=== PATIENT | female | born 1990 | race Hispanic/Latino ===

== ENCOUNTER 2019-08-17 13:08 | Emergency (ER) | payer MEDICAID, OTHER ==
[2019-08-17] MEDS ORDERED: SODIUM CHLORIDE 0.9% 1000ML 1,000 ML IV ONE (13:09)
[2019-08-17] MEDS ORDERED: ONDANSETRON HCL 4 MG/2 ML VIAL ONE (13:31)
[2019-08-17 13:53] LABS: BASOPHILS % (AUTO) 0.2 % (0.0-5.0); HEMATOCRIT 41.4 % (36-48); LYMPHOCYTES % (AUTO) 10.1 % (21.0-51.0); MEAN CORPUSCULAR HEMOGLOBIN 28.8 pg (27.0-33.0); MEAN CORPUSCULAR HGB CONC 33.6 g/dL (32.0-36.0); MEAN CORPUSCULAR VOLUME 85.7 fL (79-99); MONOCYTES % (AUTO) 2.8 % (3.0-13.0); NEUTROPHILS % (AUTO) 86.5 % (40.0-77.0); PLATELET COUNT (AUTO) 395 K/uL (130-400); RED BLOOD CELL COUNT(AUTO) 4.83 MIL/uL (4.00-5.50); RED CELL DISTRIBUTION WIDTH 14.6 % (11.0-15.5); WHITE BLOOD COUNT (AUTO) 17.3 K/uL (4.8-10.8)
[2019-08-17 14:06] LABS: APPEARANCE,URINE Turbid (CLEAR); BILIRUBIN,URINE Small (NEGATIVE); COLOR,URINE Dark Yellow (YELLOW); CREATININE 0.9 mg/dL (0.5-1.5); GLUCOSE, URINE (UA) TRACE mg/dL (NEGATIVE); KETONES,URINE >=160 mg/dL (NEGATIVE); LEUKOCYTE ESTERASE ,URINE Trace (NEGATIVE); NITRATE,URINE Negative (NEGATIVE); OCCULT BLOOD,URINE Small (NEGATIVE); POTASSIUM 3.3 mmol/L (3.5-5.1); PROTEIN,URINE 300 mg/dL (NEGATIVE)
[2019-08-17 14:22] LABS: BACTERIA,URINE Few /HPF (None Seen); MUCUS,URINE Many LPF (None Seen); RBC,URINE 0-1 /HPF (0-1); SQUAMOUS EPITHELIAL CELL,UR Moderate /HPF (0-2)
[2019-08-17 14:31] LABS: ALBUMIN 4.6 g/dL (3.5-5.0); BILIRUBIN,TOTAL 0.4 mg/dL (0.2-1.0)
== END 2019-08-17 15:59 | disposition home or self-care (01) ==
LOC: EDH 13:08
DX: O21.9 Vomiting of pregnancy, unspecified (principal); O26.891 Other specified pregnancy related conditions, first trimester; R10.31 Right lower quadrant pain; R10.32 Left lower quadrant pain; Z3A.01 Less than 8 weeks gestation of pregnancy
CPT/HCPCS: 36415; 76801; 80053; 81001; 83690; 84702; 85025; 96374; 99284; J2405; J7030

== ENCOUNTER 2020-03-21 10:32 | Observation (INO) | payer MEDICAID ==
[~2020-03-21] VITALS: Ht 162.6 cm; Wt 106.6 kg
[2020-03-21] MEDS ORDERED: CALDOLOR 800MG+NS 250ML 250 ML IV PRN (11:00)
[2020-03-21] MEDS ORDERED: LACTATED RINGERS 1000ML 1,000 ML IV PRN (11:00)
[2020-03-21] MEDS ORDERED: OXYTOCIN-LR 20 UNITS/1000 ML 1,000 ML IV SCH (11:00)
[2020-03-21] MEDS ORDERED: CEFAZOLIN SODIUM 1 GM VIAL IVP PRN (11:00)
[2020-03-21 11:22] LABS: BASOPHILS % (AUTO) 0.4 % (0.0-5.0); EOSINOPHILS % (AUTO) 1.9 % (0.0-8.0); HEMATOCRIT 32.4 % (36-48); LYMPHOCYTES % (AUTO) 21.9 % (21.0-51.0); MEAN CORPUSCULAR HEMOGLOBIN 23.1 pg (27.0-33.0); MEAN CORPUSCULAR HGB CONC 31.2 g/dL (32.0-36.0); MEAN CORPUSCULAR VOLUME 74.1 fL (79-99); MONOCYTES % (AUTO) 7.3 % (3.0-13.0); NEUTROPHILS % (AUTO) 67.5 % (40.0-77.0); NUCLEATED RED BLOOD CELLS 0.3 % (0.0-0.19); PLATELET COUNT (AUTO) 299 K/uL (130-400); RED BLOOD CELL COUNT(AUTO) 4.37 MIL/uL (4.00-5.50); RED CELL DISTRIBUTION WIDTH 17.9 % (11.0-15.5); WHITE BLOOD COUNT (AUTO) 12.3 K/uL (4.8-10.8)
[2020-03-21 11:29] LABS: APPEARANCE,URINE Clear (CLEAR); BILIRUBIN,URINE Negative (NEGATIVE); COLOR,URINE Yellow (YELLOW); GLUCOSE, URINE (UA) Negative (NEGATIVE); KETONES,URINE Negative (NEGATIVE); LEUKOCYTE ESTERASE ,URINE Negative (NEGATIVE); NITRATE,URINE Negative (NEGATIVE); OCCULT BLOOD,URINE Negative (NEGATIVE); PROTEIN,URINE POS 1+ mg/dL (NEGATIVE); UROBILINOGEN,URINE 0.2 mg/dL (0.2-1.0)
[2020-03-21 11:31] LABS: CREATININE 0.6 mg/dL (0.5-1.5); POTASSIUM 3.7 mmol/L (3.5-5.1)
[2020-03-21 11:36] LABS: ALBUMIN 2.3 g/dL (3.5-5.0); BILIRUBIN,TOTAL 0.2 mg/dL (0.2-1.0); TOTAL PROTEIN, SERUM 6.9 g/dL (6.0-8.3); URIC ACID 4.5 mg/dL (2.6-7.2)
[2020-03-21 11:57] LABS: BACTERIA,URINE Rare /HPF (None Seen); RBC,URINE 0-1 /HPF (0-1); WBC,URINE None Seen /HPF (0-1)
[2020-03-21 11:58] LABS: SQUAMOUS EPITHELIAL CELL,UR 0-2 /HPF (0-2)
[2020-03-21 12:02] LABS: INR 0.87 (0.85-1.15); PARTIAL THROMBOPLASTIN TIME 25.7 SEC (26.3-35.5); PROTHROMBIN TIME 9.4 SEC (9.6-11.6)
[2020-03-22 08:18] LABS: HEPATITIS Bs ANTIGEN SCREEN P Negative (Negative)
== END 2020-03-21 13:48 | disposition home or self-care (01) ==
LOC: OBSVTOIN 10:32 → INTOOBSV 10:32 → LDH 10:32
PROVIDERS: ADMIT Obstetrics & Gynecology; ATTEND Obstetrics & Gynecology
DX: O26.893 Other specified pregnancy related conditions, third trimester (principal); R03.0 Elevated blood-pressure reading, without diagnosis of hypertension; O34.219 Maternal care for unspecified type scar from previous cesarean delivery; Z3A.36 36 weeks gestation of pregnancy
CPT/HCPCS: 36415; 59025; 80053; 81001; 84550; 85025; 85384; 85610; 85730; 86592; 86850; 86900; 86901; 87340; 96360; 96361; G0378 ×3

== ENCOUNTER 2022-02-02 12:05 | Emergency (ER) | payer MEDICAID ==
[~2022-02-02] VITALS: Ht 162.6 cm; Wt 81.6 kg
[2022-02-02] MEDS ORDERED: 0.9%NACL 1000ML 1,000 ML IV ONE (12:30)
[2022-02-02] MEDS ORDERED: FAMOTIDINE 20MG VIAL IV ONE (12:30)
[2022-02-02] MEDS ORDERED: DICYCLOMINE HCL 10 MG/5 ML ML PO ONE (12:30)
[2022-02-02] MEDS ORDERED: MAG/ALUM/SIMETH 30 ML UDCUP PO ONE (12:30)
[2022-02-02] MEDS ORDERED: PROMETHAZINE HCL 25 MG/ML 1ML AMPULE IM ONE (12:30)
[2022-02-02] MEDS ORDERED: LIDOCAINE HCL 2% VISCOUS 15 ML UDCUP PO ONE (12:30)
[2022-02-02 12:36] LABS: BASOPHILS % (AUTO) 0.4 % (0.0-5.0); HEMATOCRIT 38.3 % (36-48); LYMPHOCYTES % (AUTO) 12.7 % (21.0-51.0); MEAN CORPUSCULAR HEMOGLOBIN 25.7 pg (27.0-33.0); MEAN CORPUSCULAR HGB CONC 32.6 g/dL (32.0-36.0); MEAN CORPUSCULAR VOLUME 78.8 fL (79-99); NEUTROPHILS % (AUTO) 79.4 % (40.0-77.0); PLATELET COUNT (AUTO) 344 K/uL (130-400); RED BLOOD CELL COUNT(AUTO) 4.86 MIL/uL (4.00-5.50); RED CELL DISTRIBUTION WIDTH 18.2 % (11.0-15.5); WHITE BLOOD COUNT (AUTO) 19.7 K/uL (4.8-10.8)
[2022-02-02 12:40] LABS: APPEARANCE,URINE CLOUDY (CLEAR); BILIRUBIN,URINE NEGATIVE (NEGATIVE); COLOR,URINE LIGHT-ORANGE (YELLOW); GLUCOSE, URINE (UA) NEGATIVE (NEGATIVE); KETONES,URINE 10 mg/dL (NEGATIVE); LEUKOCYTE ESTERASE ,URINE 25 Leu/uL (NEGATIVE); NITRATE,URINE NEGATIVE (NEGATIVE); OCCULT BLOOD,URINE LARGE (NEGATIVE); PROTEIN,URINE 100 mg/dL (NEGATIVE)
[2022-02-02 12:43] LABS: HCG,QUALITATIVE URINE NEGATIVE (NEGATIVE)
[2022-02-02 12:50] LABS: BACTERIA,URINE RARE /HPF (None Seen); MUCUS,URINE MANY LPF (None Seen); SQUAMOUS EPITHELIAL CELL,UR MANY /HPF (0-2)
[2022-02-02 12:57] LABS: ALBUMIN 4.1 g/dL (3.5-5.0); CREATININE 0.8 mg/dL (0.5-1.5); POTASSIUM 3.1 mmol/L (3.5-5.1); TOTAL PROTEIN, SERUM 8.4 g/dL (6.0-8.3)
[2022-02-02] MEDS ORDERED: CEFTRIAXONE 1G VIAL IVP ONE (13:30)
[2022-02-02] MEDS ORDERED: POTASSIUM BICARB/CIT AC 25 MEQ TABLET.EFF PO ONE (13:30)
[2022-02-02] MEDS ORDERED: CEPH500B PO (14:13)
[2022-02-02] MEDS ORDERED: ONDA4TAB10 PO (14:13)
[2022-02-02 14:31] VITALS: BP 119/67
== END 2022-02-02 14:35 | disposition home or self-care (01) ==
LOC: EDH 12:05
DX: N39.0 Urinary tract infection, site not specified (principal); E87.1 Hypo-osmolality and hyponatremia; E87.6 Hypokalemia; R11.2 Nausea with vomiting, unspecified
CPT/HCPCS: 99284; 96374; 96361; 96375; 80053; 83690; 85025; 87088; 87804 ×2; 81001; 81025; 36415; 96372; J7030; J2550; J0696; S0028; J3490

== ENCOUNTER 2023-07-12 19:24 | Emergency (ER) | payer MEDICAID, OTHER ==
[~2023-07-12] VITALS: Ht 162.6 cm; Wt 86.2 kg
[~2023-07-12 19:24] MED LIST: CEPH500B PO; ONDA4TAB10 PO
[2023-07-12 20:01] LABS: BASOPHILS # (AUTO) 0.07 K/uL (0.00-0.20); BASOPHILS % (AUTO) 0.5 % (0.0-5.0); EOSINOPHILS # (AUTO) 0.11 K/uL (0.00-0.70); EOSINOPHILS % (AUTO) 0.8 % (0.0-8.0); HEMATOCRIT 35.5 % (36-48); IMMATURE GRANULOCYTE ABSOLUTE 0.04 K/uL (0-1); LYMPHOCYTES # (AUTO) 3.6 K/uL (1.0-4.8); LYMPHOCYTES % (AUTO) 27.6 % (21.0-51.0); MEAN CORPUSCULAR HEMOGLOBIN 23.8 pg (27.0-33.0); MEAN CORPUSCULAR HGB CONC 32.1 g/dL (32.0-36.0); MEAN CORPUSCULAR VOLUME 74.1 fL (79-99); MONOCYTES # (AUTO) 0.8 K/uL (0.1-1.0); MONOCYTES % (AUTO) 6.2 % (3.0-13.0); NEUTROPHILS # (AUTO) 8.4 K/uL (1.8-7.7); NEUTROPHILS % (AUTO) 64.6 % (40.0-77.0); PLATELET COUNT (AUTO) 371 K/uL (130-400); RED BLOOD CELL COUNT(AUTO) 4.79 MIL/uL (4.00-5.50); RED CELL DISTRIBUTION WIDTH 19.6 % (11.0-15.5)
[2023-07-12] MEDS: ONDANSETRON 4MG INJ ONE (20:07)
[2023-07-12] MEDS: ONDANSETRON 4MG INJ IVP ONE (20:07)
[2023-07-12] MEDS: LACTATED RINGERS 1000ML 1,000 ML IV ONE (20:08)
[2023-07-12 20:10] LABS: CREATININE 0.6 mg/dL (0.5-1.0); POTASSIUM 4.6 mmol/L (3.5-5.1)
[2023-07-12 20:14] LABS: ALBUMIN 3.9 g/dL (3.5-5.0); BILIRUBIN,TOTAL 0.3 mg/dL (0.2-1.0); TOTAL PROTEIN, SERUM 8.5 g/dL (6.0-8.3)
[2023-07-12 20:29] LABS: APPEARANCE,URINE CLEAR (CLEAR); BILIRUBIN,URINE NEGATIVE (NEGATIVE); COLOR,URINE LIGHT-YELLOW (YELLOW); GLUCOSE, URINE (UA) NEGATIVE (NEGATIVE); KETONES,URINE 10 mg/dL (NEGATIVE); LEUKOCYTE ESTERASE ,URINE NEGATIVE Leu/uL (NEGATIVE); NITRATE,URINE NEGATIVE (NEGATIVE); OCCULT BLOOD,URINE MODERATE (NEGATIVE); PH,URINE 5.5 (5.0-8.0); PROTEIN,URINE 50 mg/dL (NEGATIVE); UROBILINOGEN,URINE 0.2 mg/dL (0.2-1.0)
[2023-07-12 20:31] LABS: ADD UA MICROSCOPIC YES
[2023-07-12 20:33] LABS: AMPHET/METH SCREEN,URINE NEGATIVE (NEGATIVE); BARBITURATE SCREEN, URINE NEGATIVE (NEGATIVE); BENZODIAZEPINES SCREEN,URINE POSITIVE (NEGATIVE); CANNABINOID SCREEN,URINE POSITIVE (NEGATIVE); COCAINE SCREEN,URINE NEGATIVE (NEGATIVE); OPIATE SCREEN,URINE NEGATIVE (NEGATIVE); PHENCYCLIDINE SCREEN,URINE NEGATIVE (NEGATIVE)
[2023-07-12] MEDS: PANTOPRAZOLE 40 MG/VIAL IVP ONE (20:34)
[2023-07-12 20:36] LABS: MUCUS,URINE RARE LPF (None Seen); SQUAMOUS EPITHELIAL CELL,UR FEW /HPF (0-2)
[2023-07-12 20:54] LABS: ALCOHOL, BLOOD < 3 mg/dL (0-10); CREATINE KINASE, TOTAL 231 U/L (21-232); THYROID STIMULATING HORMONE 2.93 uIU/mL (0.36-3.74)
[2023-07-12 22:11] VITALS: BP 125/64; PULSE 100; RESP 22; O2SAT 98
== END 2023-07-12 23:15 | disposition home or self-care (01) ==
LOC: EDH 19:24
DX: R56.9 Unspecified convulsions (principal); F12.90 Cannabis use, unspecified, uncomplicated; Z79.899 Other long term (current) drug therapy; Z98.890 Other specified postprocedural states
CPT/HCPCS: 99285; 96374; 70450; 71045; 96361; 96375; 84443; 82550; 83735; 80053; 80305; 84703; 85025; 87880; 81001; 36415; J7120; J2405; C9113; 93005

== ENCOUNTER 2023-09-16 08:18 | Emergency (ER) | payer OTHER ==
[~2023-09-16] VITALS: Ht 160 cm; Wt 83.9 kg
[~2023-09-16 08:18] MED LIST changes: +ONDA-243 PO; -ONDA4TAB10 PO
[2023-09-16 08:46] LABS: RAPID GROUP A STREP negative (NEGATIVE)
[2023-09-16 08:49] LABS: SARS-CoV-2, RNA, NAAT NEGATIVE SARS CoV-2 (NEGATIVE)
[2023-09-16 08:56] LABS: INFLUENZA TYPE A Negative For Type A (NEGATIVE); INFLUENZA TYPE B Negative For Type B (NEGATIVE)
[2023-09-16 09:16] LABS: BASOPHILS # (AUTO) 0.07 K/uL (0.00-0.20); BASOPHILS % (AUTO) 0.6 % (0.0-5.0); EOSINOPHILS # (AUTO) 0.48 K/uL (0.00-0.70); EOSINOPHILS % (AUTO) 4.4 % (0.0-8.0); HEMATOCRIT 33.2 % (36-48); IMMATURE GRANULOCYTE ABSOLUTE 0.02 K/uL (0-1); LYMPHOCYTES # (AUTO) 2.2 K/uL (1.0-4.8); MEAN CORPUSCULAR HGB CONC 31.6 g/dL (32.0-36.0); MONOCYTES # (AUTO) 0.8 K/uL (0.1-1.0); MONOCYTES % (AUTO) 7.6 % (3.0-13.0); NEUTROPHILS # (AUTO) 7.3 K/uL (1.8-7.7); NEUTROPHILS % (AUTO) 67.2 % (40.0-77.0); PLATELET COUNT (AUTO) 396 K/uL (130-400); RED BLOOD CELL COUNT(AUTO) 4.37 MIL/uL (4.00-5.50); RED CELL DISTRIBUTION WIDTH 19.8 % (11.0-15.5); WHITE BLOOD COUNT (AUTO) 10.9 K/uL (4.8-10.8)
[2023-09-16 09:23] LABS: CREATININE 0.6 mg/dL (0.5-1.0); POTASSIUM 3.8 mmol/L (3.5-5.1)
[2023-09-16 09:58] VITALS: BP 122/82; PULSE 83; RESP 16; O2SAT 100
[2023-09-16] MEDS ORDERED: PRED20TA3 PO (10:20)
[2023-09-16] MEDS ORDERED: SULF1TAB42 PO (10:20)
== END 2023-09-16 10:34 | disposition home or self-care (01) ==
LOC: EDH 08:18
DX: B34.9 Viral infection, unspecified (principal); J20.9 Acute bronchitis, unspecified; J01.90 Acute sinusitis, unspecified; Z20.822 Contact with and (suspected) exposure to COVID-19; Z79.899 Other long term (current) drug therapy; Z98.890 Other specified postprocedural states
CPT/HCPCS: 36415; 71045; 80048; 81025; 85025; 87635; 87804; 87880

== ENCOUNTER 2023-10-22 19:12 | Emergency (ER) | payer OTHER ==
[~2023-10-22] VITALS: Ht 162.6 cm; Wt 81.6 kg
[~2023-10-22 19:12] MED LIST changes: +PRED20TA3 PO; +SULF1TAB42 PO
[2023-10-22 20:19] LABS: RAPID GROUP A STREP negative (NEGATIVE)
[2023-10-22 20:23] LABS: SARS-CoV-2, RNA, NAAT NEGATIVE SARS CoV-2 (NEGATIVE)
[2023-10-22 20:29] LABS: INFLUENZA TYPE A Negative For Type A (NEGATIVE); INFLUENZA TYPE B Negative For Type B (NEGATIVE)
[2023-10-22] MEDS ORDERED: LORA10TA7 PO (20:40)
[2023-10-22] MEDS ORDERED: FLUT16H NASAL (20:40)
[2023-10-22] MEDS ORDERED: AMOX500C2 PO (20:40)
[2023-10-22 21:00] VITALS: BP 138/88; PULSE 78; RESP 16; O2SAT 100
== END 2023-10-22 21:10 | disposition home or self-care (01) ==
LOC: EDH 19:12
DX: J01.90 Acute sinusitis, unspecified (principal); Z79.899 Other long term (current) drug therapy; Z98.890 Other specified postprocedural states
CPT/HCPCS: 81025; 87635; 87804; 87880

== ENCOUNTER 2024-01-11 18:36 | Emergency (ER) | payer SELFPAY ==
[~2024-01-11] VITALS: Ht 152.4 cm; Wt 54.4 kg
[~2024-01-11 18:36] MED LIST changes: +AMOX500C2 PO; +FLUT16H NASAL; +LORA10TA7 PO
--- NOTE | 2024-01-11 19:19 | NUR ---
PENDING TEST RESULTS FOR CT EXAM.
[2024-01-11 19:42] LABS: BASOPHILS # (AUTO) 0.09 K/uL (0.00-0.20); BASOPHILS % (AUTO) 0.7 % (0.0-5.0); EOSINOPHILS # (AUTO) 0.08 K/uL (0.00-0.70); EOSINOPHILS % (AUTO) 0.6 % (0.0-8.0); HEMATOCRIT 36.3 % (36-48); IMMATURE GRANULOCYTE ABSOLUTE 0.06 K/uL (0-1); LYMPHOCYTES # (AUTO) 2.2 K/uL (1.0-4.8); LYMPHOCYTES % (AUTO) 17.5 % (21.0-51.0); MEAN CORPUSCULAR HEMOGLOBIN 24.7 pg (27.0-33.0); MEAN CORPUSCULAR HGB CONC 32.5 g/dL (32.0-36.0); MEAN CORPUSCULAR VOLUME 75.9 fL (79-99); MONOCYTES # (AUTO) 0.7 K/uL (0.1-1.0); MONOCYTES % (AUTO) 5.8 % (3.0-13.0); NEUTROPHILS # (AUTO) 9.4 K/uL (1.8-7.7); NEUTROPHILS % (AUTO) 74.9 % (40.0-77.0); PLATELET COUNT (AUTO) 385 K/uL (130-400); RED BLOOD CELL COUNT(AUTO) 4.78 MIL/uL (4.00-5.50); RED CELL DISTRIBUTION WIDTH 18.9 % (11.0-15.5); WHITE BLOOD COUNT (AUTO) 12.6 K/uL (4.8-10.8)
[2024-01-11 19:50] LABS: CREATININE 0.9 mg/dL (0.5-1.0); POTASSIUM 3.3 mmol/L (3.5-5.1)
[2024-01-11] MEDS: diazePAM 5 MG/ML 2 ML SYG IV STA (20:08)
[2024-01-11] MEDS: 0.9%NACL 1000ML 1,000 ML IV ONE (20:09)
[2024-01-11 20:16] LABS: HCG,QUALITATIVE URINE NEGATIVE (NEGATIVE)
[2024-01-11 20:20] LABS: AMPHET/METH SCREEN,URINE NEGATIVE (NEGATIVE); BARBITURATE SCREEN, URINE NEGATIVE (NEGATIVE); BENZODIAZEPINES SCREEN,URINE POSITIVE (NEGATIVE); CANNABINOID SCREEN,URINE POSITIVE (NEGATIVE); COCAINE SCREEN,URINE NEGATIVE (NEGATIVE); OPIATE SCREEN,URINE NEGATIVE (NEGATIVE); PHENCYCLIDINE SCREEN,URINE NEGATIVE (NEGATIVE)
--- NOTE | 2024-01-11 20:36 | ERN ---
General Chief Complaint: Seizure Stated Complaint: SEIZURE Time Seen by MD: 19:11 Source: patient, family History of Present Illness Initial Comments Patient is a 33-year-old female coming in to be evaluated for seizure-like activity. Per patient then family member at bedside patient had a seizure earlier today lasting for a couple of minutes. Patient has a history of seizure s in the past. Patient has a follow up with the PCP or neurologist yet. Allergies: Coded Allergies: No Known Drug Allergies (Unverified Allergy, Unknown, 08/17/19) Home Meds Active Scripts Loratadine (Loratadine) 10 Mg Tablet, 10 MG PO DAILY for 30 Days, #30 TAB Prov:NARESH TYLER MD 10/22/23 Amoxicillin (Amoxicillin) 500 Mg Capsule, 500 MG PO TID for 7 Days, #21 CAP Prov:NARESH TYLER MD 10/22/23 Fluticasone Propionate (Flonase Nasal [place]) 50 Mcg/Actuation [place], 50 MCG NASAL BID for 7 Days, #14 SPRAY Prov:NARESH TYLER MD 10/22/23 Prednisone (Prednisone) 20 Mg Tablet, 1 TAB PO AD for 6 Days, #14 TAB 0 Refills TAKE 1 TAB BY MOUTH THREE TIMES PER DAY X3 DAYS, THEN TAKE 1 TAB BY MOUTH TWICE A DAY X2 DAYS, THEN TAKE 1 TAB BY MOUTH ONCE A DAY X1 DAY. Prov:BETTY DENIS MD 09/16/23 Sulfamethoxazole/Trimethoprim (Bactrim Ds Tablet) 800 Mg-160 Mg Tablet, 1 TAB PO BID for 7 Days, #14 TAB 0 Refills Prov:BETTY DENIS MD 09/16/23 Ondansetron (Ondansetron Odt) 4 Mg Tab.rapdis, 4 MG PO TID, #21 TAB Prov:JUANITO LAUREN 02/02/22 Cephalexin Monohydrate (Keflex) 500 Mg Cap, 500 MG PO TID for 7 Days, #21 CAP Prov:JUANITO LAUREN 02/02/22 Past Medical History Past Medical History: Seizure Past Surgical History: Family History Family History: Negative Social History Social History: Negative, Lives with family ROS Dictation CONSTITUTIONAL: No chills, no fever, no weakness, no diaphoresis, no malaise. HEAD/FACE: No signs of trauma. EENT: No eye pain, no blurred vision, no tearing, no double vision, no ear pain, no ear discharge, no nose pain, no nasal congestion, no throat pain, no throat swelling, no mouth pain. RESPIRATORY: No cough, no orthopnea, no SOB, no stridor, no wheezing. CARDIOVASCULAR: No chest pain, no edema, no palpitations, no syncope. GASTROINTESTINAL/ABDOMINAL: No abdominal pain, no constipation, no diarrhea, no nausea, no vomiting. GENITOURINARY: No abnormal discharge, no dysuria, no frequent urination, no hematuria. No complaints of pain in the genitals. MUSCULOSKELETAL: No back pain, no gout, no joint pain, no joint swelling, no muscle pain, no muscle stiffness, no neck pain. INTEGUMENTARY: No change in color, no change in hair/nails, no dryness, no lesion, no lumps, no rash. NEUROLOGICAL/PSYCH: No anxiety, not depressed, no emotional problem, no headache, no numbness, no pre-existing deficit, no history of seizures, no tremors, no weakness. HEMATOLOGIC/LYMPHATIC: Not anemic, no history of blood clots, no apparent bleeding, no bruising, glands not swollen. All Systems Negative, Except as Noted. Physical Exam Physical Exam Dictation VITAL SIGNS: Reviewed. GENERAL APPEARANCE: Alert, oriented x3, no acute distress, obese. HEAD AND FACE: Non-traumatic. EYES: PERRL, pink conjunctivas, eyelid no trauma, anterior chamber clear. EARS: Pinnas intact and no signs of trauma or erythema. Ear canals clear and no discharge. TMs no erythema. NOSE: No discharge, no bleeding. OROPHARYNX: Mouth normal, teeth no caries, tongue pink. Pharynx clear, no erythema. Tonsils no exudates, no abscesses noted. Mucous membrane moist. NECK: Supple, non-tender, no thyromegaly, no masses, no JVD, no bruits. BREAST: Deferred. CHEST: No tenderness, no crepitus, no paradoxical movement, no retractions. LUNGS: Clear, well-ventilated, symmetric, no rales, no wheezing, no rhonchi, no stridor, good breath sounds bilaterally. HEART: Regular rate, regular rhythm, no murmur, no gallops. VASCULAR: No peripheral edema. ABDOMEN: Soft, positive bowel sounds, nondistended, no guarding, nontender, no rebound, no masses no hepatomegaly, no splenomegaly, no Neff's sign, no hernias. RECTAL: Deferred. GENITAL: Deferred. NEUROLOGICAL: Normal speech, gross motor function intact, gross sensory function intact. MUSCULOSKELETAL: Neck nontender, full range of motion, back nontender, full range of motion. EXTREMITIES: Nontender, full range of motion. SKIN: Color pink, dry, no turgor, no rash, no lacerations, no abrasions, no contusions. LYMPHATICS: Deferred. Results Laboratory and Microbiology Lab and Micro Result Laboratory Tests Test 01/11/24 19:33 01/11/24 20:00 White Blood Count 12.6 K/uL (4.8-10.8) H Red Blood Count 4.78 MIL/uL (4.00-5.50) Hemoglobin 11.8 g/dL (12.0-16.0) L Hematocrit 36.3 % (36-48) Mean Corpuscular Volume 75.9 fL (79-99) L Mean Corpuscular Hemoglobin 24.7 pg (27.0-33.0) L Mean Corpuscular Hemoglobin Concent 32.5 g/dL (32.0-36.0) Red Cell Distribution Width 18.9 % (11.0-15.5) H Platelet Count 385 K/uL (130-400) Mean Platelet Volume 9.8 fL (7.5-10.5) Immature Granulocyte % (Auto) 0.5 % (0-1) Neutrophils (%) (Auto) 74.9 % (40.0-77.0) Lymphocytes (%) (Auto) 17.5 % (21.0-51.0) L Monocytes (%) (Auto) 5.8 % (3.0-13.0) Eosinophils (%) (Auto) 0.6 % (0.0-8.0) Basophils (%) (Auto) 0.7 % (0.0-5.0) Neutrophils # (Auto) 9.4 K/uL (1.8-7.7) H Lymphocytes # (Auto) 2.2 K/uL (1.0-4.8) Monocytes # (Auto) 0.7 K/uL (0.1-1.0) Eosinophils # (Auto) 0.08 K/uL (0.00-0.70) Basophils # (Auto) 0.09 K/uL (0.00-0.20) Absolute Immature Granulocyte (auto 0.06 K/uL (0-1) Nucleated Red Blood Cells 0.0 % (0.0-0.19) Red Blood Cell Morphology See comments Sodium Level 136 mmol/L (136-145) Potassium Level 3.3 mmol/L (3.5-5.1) L Chloride Level 103 mmol/L (101-111) Carbon Dioxide Level 23 mmol/L (21-32) Blood Urea Nitrogen 13 mg/dL (7-18) Creatinine 0.9 mg/dL (0.5-1.0) Glomerular Filtration Rate Calc 87 mL/min (>90) Random Glucose 110 mg/dL (70-105) H Total Calcium 9.2 mg/dL (8.5-10.1) Total Creatine Kinase 149 U/L (21-232) # Urine HCG, Qualitative NEGATIVE (NEGATIVE) Urine Opiates Screen NEGATIVE (NEGATIVE) Urine Barbiturates Screen NEGATIVE (NEGATIVE) Urine Phencyclidine Screen NEGATIVE (NEGATIVE) Urine Amphetamines Screen NEGATIVE (NEGATIVE) Urine Benzodiazepines Screen POSITIVE (NEGATIVE) H Urine Cocaine Screen NEGATIVE (NEGATIVE) Urine Marijuana (THC) Screen POSITIVE (NEGATIVE) H Labs Reviewed?: Yes MDM MDM: Differential diagnosis: Seizure-like activity, cannabis abuse, Rationale: Tests considered and ordered secondary to shared decision making include: Previous outside records reviewed: Old ER visits. Risk of complication and/or morbidity or mortality of patient management: None Medications-Per medication reconciliation Need for hospitalization: Patient does not meet criteria for hospitalization. Need for emergency major/minor surgery: No There are no social concerns with this patient. Prescription drug management Prescriptions will include symptomatic care Patient's prior external medical records from other ER visits were reviewed by me as indicated. Prior testing and results from previous visits were reviewed. Prior tests were taken into account with medical decision making and resource utilization, independent historian/historians were used to obtain complete medical history. I independently interpreted the test that were performed, results were reviewed by me and considered findings on radiology if ordered. Medical management and examination interpretation discussions were had by me with other qualified healthcare professionals as indicated for the patient's care. In his is a 33-year-old female coming in to be evaluated for seizure-like activity. Laboratory workup and CT negative for acute findings except for cannabis. Patient will be discharged with a diagnosis of seizure-like activity as well as cannabis abuse with hyperemesis. Pt will be discharged in stable condition. ED Course Orders Procedure Category Date Status Time Ct Head/Brain W/O CT 01/11/24 Resulted Contrast 19:10 Basic Metabolic Panel LAB 01/11/24 Complete 19:10 Cbc With Differential LAB 01/11/24 Complete 19:10 ,Urine Test LAB 01/11/24 Complete 19:13 Drug Screen Urine LAB 01/11/24 Complete 19:13 12 Lead Ekg Tracing- EKG 01/11/24 Logged Technical 19:13 0.9%Nacl 1000ml (Ns PHA 01/11/24 In Process 1000ml) 19:30 Diazepam 5 Mg/Ml 2 Ml PHA 01/11/24 In Process Syg (Valium 5 Mg/M 19:13 Creatine Kinase, Total LAB 01/11/24 Complete 19:10 Levetiracetam 500 PHA 01/11/24 In Process Mg/5 Ml Sd V (Keppra 5 20:22 Ondansetron 4mg Inj PHA 01/11/24 Complete (Zofran 4mg Inj) 20:33 Ondansetron 4mg Inj PHA 01/11/24 In Process (Zofran 4mg Inj) 21:00 Current Medications Medications (Trade) Dose Ordered Sig/Ronni Route PRN Reason Start Time Stop Time Status Last Admin Dose Admin Diazepam (VALium 5 MG/ML 2 ML SYG) 5 mg Q4H STAT IV 01/11/24 19:13 01/11/24 19:14 Levetiracetam (kepPRA 500 MG/5 ML SD VIAL) 500 mg ONCE STAT IV 01/11/24 20:22 01/11/24 20:23 01/11/24 20:37 Ondansetron HCl (zoFRAN 4MG INJ) 4 mg ONCE ONCE IVP 01/11/24 21:00 01/11/24 21:01 Ondansetron HCl (zoFRAN 4MG INJ) 4 mg STK-MED ONCE .ROUTE 01/11/24 20:33 01/11/24 20:34 DC 01/11/24 20:38 Sodium Chloride 1,000 ml @ 0 mls/hr ONCE ONCE IV 01/11/24 19:30 01/11/24 19:31 01/11/24 20:09 Vital Signs Date Time Temp Pulse Resp B/P (MAP) Pulse Ox O2 Delivery O2 Flow Rate FiO2 01/11/24 19:00 98.1 82 18 120/72 99 Room Air* 0 21 01/11/24 18:37 98.1 77 18 122/74 97 DX & DISP Disposition: Discharge Departure Impression: Primary Impression: Seizure-like activity Additional Impressions: Nausea and vomiting, Marijuana use Condition: Stable Scripts Levetiracetam (Keppra) 500 Mg Tablet 500 MG PO BID for 30 Days, #60 TAB 0 Refills Prov: NARESH TYLER MD 01/11/24 Additional Instructions: FOLLOW-UP WITH PRIMARY CARE PROVIDER IN 1 TO 2 DAYS. TAKE MEDICATIONS DIRECTED HERE IN THE EMERGENCY ROOM. OKAY TO CONTINUE HOME MEDICATIONS UNLESS OTHERWISE DISCUSSED DURING YOUR VISIT IN THE EMERGENCY ROOM TODAY. RETURN TO YOUR NEAREST EMERGENCY ROOM IF SYMPTOMS WORSEN OR IF THERE IS NO IMPROVEMENT. CALL 911 IF YOU NEED IMMEDIATE ASSISTANCE. TAKE TYLENOL [id number] NEEDED AND IF NO CONTRAINDICATIONS ARE PRESENT. INCREASE ORAL HYDRATION. A WOUND CULTURE OR URINE CULTURE WAS ORDERED HERE IN THE EMERGENCY ROOM DEPARTMENT PLEASE FOLLOW-UP WITH PRIMARY CARE PROVIDER AND ADVISE THEM TO GET REPEAT PORTS FROM OUR FACILITY. IF YOU HAD ANY ARACELI WRAP/SPLINTS THAT WERE APPLIED HERE, PLEASE DO NOT REMOVE THEM UNTIL YOU SEE YOUR PRIMARY CARE OR SPECIALTY. Referrals: Referrals: NONE (PCP) MOIRA FALCON MD, LUIS A MD Time of Disposition: 21:14 NARESH TYLER MD Jan 11, 2024 20:36
[2024-01-11] MEDS: leveTIRACEtam 500 MG/5 ML SD VIAL IV STA (20:37)
[2024-01-11] MEDS: ondanSETRON 4MG INJ ONE (20:38)
--- NOTE | 2024-01-11 20:39 | NUR ---
TAKEN TO CT AT THIS TIME./BRANDEN
[2024-01-11] MEDS: ondanSETRON 4MG INJ IVP ONE (20:44)
--- NOTE | 2024-01-11 20:55 | HMCIMG ---
Exam: NONCONTRAST CT BRAIN REASON: SEIZURE. COMPARISON: 07/12/2023 TECHNIQUE: Images are obtained from vertex to the skull base. The exam was performed without IV contrast. FINDINGS: There is normal appearing brain parenchyma. There are no focal mass lesions. There is is no evidence of intracranial hemorrhage or acute stroke. Ventricles and sulci appear normal. Posterior fossa and brainstem structures are unremarkable. Paranasal sinuses and remaining extracranial soft tissues appear normal as well. IMPRESSION: 1. Normal noncontrast CT brain. CT was performed with one or more following dose reduction techniques: automated exposure control, adjustment of the mA and kv according to patient's size, or use of a iterative reconstruction technique.
[2024-01-11] MEDS ORDERED: LEVE-43 PO (21:16)
[2024-01-11 21:17] VITALS: BP 128/81; PULSE 79; RESP 17; TEMP 98.3; O2SAT 99
--- NOTE | 2024-01-12 06:55 | EKG ---
[facility] Test Date: 2024-01-11 Test Time: 19:19:43 Pat Name: ALFA JUSTIN Department: ED Room: Gender: F Lab Coordinator: [id number] : 1990 Requested By: NARESH TYLER Order Number: [id number] Reading MD: Ishmael Gamino Measurements Intervals [place] Rate: 67 P: 35 MS: 182 QRS: 23 QRSD: 93 T: 46 QT: 399 QTc: 419 Interpretive Statements Sinus rhythm Atrial premature complex Compared to ECG 07/12/2023 20:13:08 Atrial premature complex(es) now present Sinus arrhythmia no longer present Electronically Signed On 01-18-2024 05:50:14 CDT by Ishmael Gamino Please click the below link to view image of tracing.
== END 2024-01-11 21:28 | disposition home or self-care (01) ==
LOC: EDH 18:36
DX: R56.9 Unspecified convulsions (principal); R11.2 Nausea with vomiting, unspecified; F12.90 Cannabis use, unspecified, uncomplicated; Z79.899 Other long term (current) drug therapy; Z98.890 Other specified postprocedural states
CPT/HCPCS: 99285; 96365; 70450; 82550; 80048; 80305; 85025; 81025; 36415; 93005; J1953; J7030; J3360; J2405

== ENCOUNTER 2024-08-18 15:51 | Emergency (ER) | payer BC ==
[~2024-08-18] VITALS: Ht 160 cm; Wt 68.0 kg
[~2024-08-18 15:51] MED LIST changes: +LEVE-43 PO
[2024-08-18 15:52] VITALS: BP 110/63; PULSE 69; RESP 16; TEMP 98.3
--- NOTE | 2024-08-18 16:11 | NUR ---
PT STATES "HAS NOT TAKEN HER SEIZURE MEDS X 2 WEEKS, DARIANA"
[2024-08-18 16:25] LABS: BASOPHILS # (AUTO) 0.03 K/uL (0.00-0.20); BASOPHILS % (AUTO) 0.2 % (0.0-5.0); EOSINOPHILS # (AUTO) 0.01 K/uL (0.00-0.70); EOSINOPHILS % (AUTO) 0.1 % (0.0-8.0); IMMATURE GRANULOCYTE ABSOLUTE 0.09 K/uL (0-1); LYMPHOCYTES # (AUTO) 1.1 K/uL (1.0-4.8); LYMPHOCYTES % (AUTO) 8.8 % (21.0-51.0); MEAN CORPUSCULAR HEMOGLOBIN 23.9 pg (27.0-33.0); MEAN CORPUSCULAR HGB CONC 31.5 g/dL (32.0-36.0); MEAN CORPUSCULAR VOLUME 75.7 fL (79-99); MONOCYTES # (AUTO) 0.8 K/uL (0.1-1.0); MONOCYTES % (AUTO) 6.4 % (3.0-13.0); NEUTROPHILS # (AUTO) 10.1 K/uL (1.8-7.7); NEUTROPHILS % (AUTO) 83.8 % (40.0-77.0); PLATELET COUNT (AUTO) 371 K/uL (130-400); RED BLOOD CELL COUNT(AUTO) 4.36 MIL/uL (4.00-5.50); RED CELL DISTRIBUTION WIDTH 18.9 % (11.0-15.5); WHITE BLOOD COUNT (AUTO) 12.1 K/uL (4.8-10.8)
[2024-08-18 16:32] LABS: CREATININE 0.7 mg/dL (0.5-1.0); POTASSIUM 3.5 mmol/L (3.5-5.1)
[2024-08-18] MEDS: leveTIRACEtam 500 MG/5 ML SD VIAL IV STA (16:32)
[2024-08-18] MEDS: 0.9%NACL 1000ML 1,000 ML IV STA (16:33)
--- NOTE | 2024-08-18 17:20 | ERN ---
ED Note History of Present Illness Stated Complaint: SEIZURE Chief Complaint: Seizure Time Seen by : 15:54 Time Seen by Midlevel: 15:58 Dictation: 33-year-old female coming in status post seizure. Patient was sitting on her bed bent forward time her shoe when she began having a seizure and fell back into her bed. No trauma. Patient does have a history of seizures and takes Keppra. Patient states she has not been taking it for two weeks. When I asked patient why patient just shrugged. Denies any fevers, headaches, chest pain, chest discomfort, nausea or vomiting. Allergies: Coded Allergies: No Known Drug Allergies (Unverified Allergy, Unknown, 08/17/19) Home Meds Active Scripts Levetiracetam (Keppra) 500 Mg Tablet, 500 MG PO BID for 30 Days, #60 TAB 0 Refills Prov:NARESH TYLER MD 01/11/24 Loratadine (Loratadine) 10 Mg Tablet, 10 MG PO DAILY for 30 Days, #30 TAB Prov:NARESH TYLER MD 10/22/23 Amoxicillin (Amoxicillin) 500 Mg Capsule, 500 MG PO TID for 7 Days, #21 CAP Prov:NARESH TYLER MD 10/22/23 Fluticasone Propionate (Flonase Nasal [place]) 50 Mcg/Actuation [place], 50 MCG NASAL BID for 7 Days, #14 SPRAY Prov:NARESH TYLER MD 10/22/23 Prednisone (Prednisone) 20 Mg Tablet, 1 TAB PO AD for 6 Days, #14 TAB 0 Refills TAKE 1 TAB BY MOUTH THREE TIMES PER DAY X3 DAYS, THEN TAKE 1 TAB BY MOUTH TWICE A DAY X2 DAYS, THEN TAKE 1 TAB BY MOUTH ONCE A DAY X1 DAY. Prov:BETTY DENIS MD 09/16/23 Sulfamethoxazole/Trimethoprim (Bactrim Ds Tablet) 800 Mg-160 Mg Tablet, 1 TAB PO BID for 7 Days, #14 TAB 0 Refills Prov:BETTY DENIS MD 09/16/23 Ondansetron (Ondansetron Odt) 4 Mg Tab.rapdis, 4 MG PO TID, #21 TAB Prov:JUANITO LAUREN 02/02/22 Cephalexin Monohydrate (Keflex) 500 Mg Cap, 500 MG PO TID for 7 Days, #21 CAP Prov:LAURENTRISTA GusmanJUANITO PA 02/02/22 Past Medical History Past Medical History: Seizure Surgical History: Family History: Negative Social History: Negative, Lives with family Review of System Dictation Constitutional: Negative for fever,chills, and weight loss Eyes: Negative for injury, pain,redness, and discharge ENT: Negative for injury,pain or swelling Cardiovascular: Negative for chest pain, palpitations, and edema Respiratory: Negative for shortness of breath, cough, and wheezing, Abdomen/GI: Negative for abdominal pain, nausea, vomiting, diarrhea, and constipation Back: Negative for injury and pain : Negative for injury, bleeding and discharge MS/Extremity: Negative for injury and deformity Skin: Negative for rash, and discoloration Neuro: Negative for headache, weakness, numbness, tingling, and seizure Psych: Negative for suicide ideation, homicidal ideation, and hallucinations Review of Systems: was completed Initial Vital Sign VS Vital Signs Date Time Temp Pulse Resp B/P (MAP) Pulse Ox O2 Delivery O2 Flow Rate FiO2 08/18/24 15:52 98.2 69 16 110/63 100 0 Physical Exam Dictation General: awake, alert, NAD Head/Face: Normocephalic, atraumatic Eyes: PERRL, EOMI, vision at baseline ENT: oral cavity clear, TMs clear, no signs of infection Neck: Trachea midline, supple, no nuchal rigidity Cardiovascular: RRR, normal S1/S2, No MRGs, no JVD Respiratory: CTAB, no respiratory distress, No rales or wheezes Abdomen: Soft, non-tender, non-distended, normal bowel sounds, no guarding or re bound. Skin: Warm, dry, normal turgor, no rash MS/Extremity: Pulses equal, no cyanosis, neurovascular intact, FROM Neuro: COAx4, GCS 15, strength 5/5, CN 2-12 intact, normal cerebellar exam, normal gait, Psych: Normal behavior, mood, and affect normal Results (Laboratory/Radiology) Laboratory/Radiology Laboratory Tests Test 08/18/24 16:20 White Blood Count 12.1 K/uL (4.8-10.8) H Red Blood Count 4.36 MIL/uL (4.00-5.50) Hemoglobin 10.4 g/dL (12.0-16.0) L Hematocrit 33.0 % (36-48) L Mean Corpuscular Volume 75.7 fL (79-99) L Mean Corpuscular Hemoglobin 23.9 pg (27.0-33.0) L Mean Corpuscular Hemoglobin Concent 31.5 g/dL (32.0-36.0) L Red Cell Distribution Width 18.9 % (11.0-15.5) H Platelet Count 371 K/uL (130-400) Mean Platelet Volume 9.1 fL (7.5-10.5) Immature Granulocyte % (Auto) 0.7 % (0-1) Neutrophils (%) (Auto) 83.8 % (40.0-77.0) H Lymphocytes (%) (Auto) 8.8 % (21.0-51.0) L Monocytes (%) (Auto) 6.4 % (3.0-13.0) Eosinophils (%) (Auto) 0.1 % (0.0-8.0) Basophils (%) (Auto) 0.2 % (0.0-5.0) Neutrophils # (Auto) 10.1 K/uL (1.8-7.7) H Lymphocytes # (Auto) 1.1 K/uL (1.0-4.8) Monocytes # (Auto) 0.8 K/uL (0.1-1.0) Eosinophils # (Auto) 0.01 K/uL (0.00-0.70) Basophils # (Auto) 0.03 K/uL (0.00-0.20) Absolute Immature Granulocyte (auto 0.09 K/uL (0-1) Nucleated Red Blood Cells 0.0 % (0.0-0.19) White Cell Morphology Comment See comments Red Blood Cell Morphology See comments Sodium Level 138 mmol/L (136-145) Potassium Level 3.5 mmol/L (3.5-5.1) Chloride Level 105 mmol/L (101-111) Carbon Dioxide Level 25 mmol/L (21-32) Blood Urea Nitrogen 9 mg/dL (7-18) Creatinine 0.7 mg/dL (0.5-1.0) Glomerular Filtration Rate Calc 117 mL/min (>90) Random Glucose 97 mg/dL (70-105) Total Calcium 8.9 mg/dL (8.5-10.1) Human Chorionic Gonadotropin, Quant 0 mIU/mL (0-5) Labs Reviewed?: Yes ED Course ED Course Orders Procedure Category Date Status Time Cbc With Differential LAB 08/18/24 Complete 15:57 Basic Metabolic Panel LAB 08/18/24 Complete 15:57 Drug Screen Urine LAB 08/18/24 Logged 15:57 Hcg,Quantitative LAB 08/18/24 Complete 15:57 Levetiracetam 500 PHA 08/18/24 Complete Mg/5 Ml Sd V (Keppra 5 15:57 0.9%Nacl 1000ml (Ns PHA 08/18/24 Complete 1000ml) 16:00 Seizure Precautions CPOE 08/18/24 Transmitted 16:01 Current Medications Medications (Trade) Dose Ordered Sig/Ronni Route PRN Reason Start Time Stop Time Status Last Admin Dose Admin Levetiracetam (kepPRA 500 MG/5 ML SD VIAL) 1,000 mg ONCE STAT IV 08/18/24 15:57 08/18/24 16:04 DC 08/18/24 16:32 Sodium Chloride 1,000 ml @ 1,000 mls/hr Q1H STAT IV 08/18/24 16:00 08/18/24 16:59 DC 08/18/24 16:33 Vital Signs Date Time Temp Pulse Resp B/P (MAP) Pulse Ox O2 Delivery O2 Flow Rate FiO2 08/18/24 15:52 98.2 69 16 110/63 100 0 Medical Decision Making MDM MDM: 33-year-old female coming in status post seizure. Denies any drug use. Patient was sitting on her bed bent forward time her shoe when she began having a seizure and fell back into her bed. No trauma. Patient does have a history of seizures and takes Keppra. Patient states she has not been taking it for two weeks. When I asked patient why patient just shrugged. Patient states she does have medication at home but just does not take it. Denies any fevers, headaches, chest pain, chest discomfort, nausea or vomiting. CBC shows mild leukocytosis of 12, this could be related to seizure-like activity. Mild anemia hemoglobin of 10. No thrombocytopenia. Chemistry unremarkable. No electrolyte abnormality. Normal kidney function. Patient received a loading dose of Keppra along with some fluids. Patient will be discharged home. Discussed extensively with the patient that she needs to be compliant with her seizure medications that she has this could lead to multiple complications. Patient verbalized understanding, answered all questions. Differential diagnosis: Breakthrough seizure, dehydration, electrolyte abnormality, drug use Rationale: Tests considered and ordered secondary to shared decision making include: Previous outside records reviewed: Old ER visits. Risk of complication and/or morbidity or mortality of patient management: None Medications-Per medication reconciliation Need for hospitalization: Patient does not meet criteria for hospitalization. Need for emergency major/minor surgery: No There are no social concerns with this patient. Prescription drug management Prescriptions will include symptomatic care Patient's prior external medical records from other ER visits were reviewed by me as indicated. Prior testing and results from previous visits were reviewed. Prior tests were taken into account with medical decision making and resource utilization, independent historian/historians were used to obtain complete medical history. I independently interpreted the test that were performed, results were reviewed by me and considered findings on radiology if ordered. Medical management and examination interpretation discussions were had by me with other qualified healthcare professionals as indicated for the patient's care. DX & DISP Disposition: Discharge Departure Impression: Primary Impression: Breakthrough seizure Additional Impression: Noncompliance w/medication treatment due to intermit use of medication Condition: Stable Additional Instructions: You need to be compliant with your seizure medications to avoid any complications. Take your Keppra as prescribed. Follow up with your primary doctor in 1-2 days or return to the hospital if symptoms worsen. Referrals: NONE (PCP) Time of Disposition: 17:19 I have reviewed the case, and I agree with, Diagnosis and Plan MOY NEFF NP August 18, 2024 17:20
== END 2024-08-18 18:56 | disposition home or self-care (01) ==
LOC: EDH 15:51
DX: R56.9 Unspecified convulsions (principal); R10.2 Pelvic and perineal pain; Z91.148 Patient's other noncompliance with medication regimen for other reason; Z79.899 Other long term (current) drug therapy
CPT/HCPCS: 99284; 96365; 80048; 84702; 85025; 36415; J1953; J7030; 96360

== ENCOUNTER 2025-02-11 15:44 | Emergency (ER) | payer BC ==
[~2025-02-11] VITALS: Ht 167.6 cm; Wt 76.7 kg
[~2025-02-11 15:44] MED LIST changes: -AMOX500C2 PO; +CEFU500T67 PO; -CEPH500B PO; -FLUT16H NASAL; +HYDR-4030 PO; -LORA10TA7 PO; -ONDA-243 PO; -PRED20TA3 PO; -SULF1TAB42 PO
--- NOTE | 2025-02-11 15:45 | NUR ---
800 ML OF EMESIS
--- NOTE | 2025-02-11 15:59 | ERN ---
ED Note History of Present Illness Stated Complaint: NAUSEA AND VOMITING Chief Complaint: Nausea,Vomiting,Diarrhea Time Seen by MD: 15:50 Dictation: PATIENT IS A 34-YEAR-OLD FEMALE COMING IN VIA EMS WITH A INTRACTABLE NAUSEA VOMITING ONSET THIS MORNING. SHE HAS HAD NO FEVER NO CHILLS SHE STATES SHE IS HAVING MILD EPIGASTRIC PAIN. DENIES ANY HISTORY OF PANCREATITIS DIVERTICULITIS NO URINARY TRACT INFECTIONS. SHE STATES SHE IS UNSURE WITH A SHE IS . HER LAST FOOD INTAKE WAS FAST FOOD CHICKEN NUGGETS LAST NIGHT HOWEVER THE VOMITED STARTED THIS MORNING. NO PRIMARY CARE DOCTOR. SHE STATES NO ONE IN THE HOUSE IS HAVING SIMILAR SYMPTOMS. Allergies: Coded Allergies: No Known Drug Allergies (Unverified Allergy, Unknown, 08/17/19) Home Meds Active Scripts Cefuroxime Axetil (Cefuroxime) 500 Mg Tablet, 1 TAB PO BID for 5 Days, #10 TAB 0 Refills Prov:KIARA MCGILL MD 11/09/24 Reported Medications Hydroxyzine Pamoate (Hydroxyzine Pamoate) 25 Mg Capsule, 1 CAP PO TID for anxiety for 30 Days, #90 CAP 0 Refills 11/06/24 Levetiracetam (Keppra) 500 Mg Tablet, 1 TAB PO BID for 30 Days, #60 TAB 0 Refills 11/06/24 Past Medical History Past Medical History: Anxiety Surgical History: Family History: Negative Social History: Drugs, Negative, Lives with family LMP: Jan 10, 2025 RN Note Reviewed/Agreed w/PFSH: Yes Review of System Dictation CONSTITUTIONAL: NEGATIVE EXCEPT FOR HPI HEAD/FACE: NEGATIVE EXCEPT FOR HPI EENT: NEGATIVE EXCEPT FOR HPI RESPIRATORY: NEGATIVE EXCEPT FOR HPI GASTROINTESTINAL/ABDOMINAL: NEGATIVE EXCEPT FOR HPI EPIGASTRIC PAIN WITH NAUSEA VOMITING GENITOURINARY: NEGATIVE EXCEPT FOR HPI MUSCULOSKELETAL: NEGATIVE EXCEPT FOR HPI INTEGUMENTARY: NEGATIVE EXCEPT FOR HPI NEUROLOGICAL/PSYCH: NEGATIVE EXCEPT FOR HPI HEMATOLOGIC/LYMPHATIC: NEGATIVE EXCEPT FOR HPI ALL SYSTEMS NEGATIVE, EXCEPT NOTED ABOVE. 13 POINT REVIEW OF SYSTEMS ASSESSED AND ALL NEGATIVE EXCEPT FOR ABOVE. Initial Vital Sign VS Vital Signs Date Time Temp Pulse Resp B/P (MAP) Pulse Ox O2 Delivery O2 Flow Rate FiO2 02/11/25 15:45 99.0 98 20 148/97 99 Room Air* 0 21 Physical Exam Dictation VITAL SIGNS REVIEWED GENERAL APPEARANCE: ALERT, ORIENTED X 3, MODERATE ACUTE DISTRESS, WELL DEVELOPED, NOURISHED. PATIENT ACTIVELY VOMITING WHILE BEING EXAMINED. HEAD AND FACE: NON-TRAUMATIC. EYES: PERRL, PINK CONJUNCTIVAS, EYELID NO TRAUMA, ANTERIOR CHAMBER WITH ARCUS SENILIS. EARS: PINNAS INTACT AND NO SIGNS OF TRAUMA OR ERYTHEMA EAR CANALS CLEAR AND NO DISCHARGE TM NO ERYTHEMA NOSE: NO DISCHARGE, NO BLEEDING. OROPHARYNX: MOUTH NORMAL, TONGUE PINK, PHARYNX CLEAR,NO ERYTHEMA, TONSILS NO EXUDATES, NO ABSCESSES NOTED, MUCOUS MEMBRANE MOIST NECK: SUPPLE, NON-TENDER, NO THYROMEGALY, NO MASSES, NO JVD, NO BRUITS BREAST:DEFERRED CHEST:NO TENDERNESS, NO CREPITUS, NO PARADOXICAL MOVEMENT, NO RETRACTIONS LUNGS:CLEAR, WELL-VENTILATED, SYMMETRIC, NO RALES, NO WHEEZING, NO RHONCHI, NO STRIDOR, GOOD BREATH SOUNDS BILATERALLY HEART: REGULAR RATE, REGULAR RHYTHM, NO MURMUR, NO GALLOPS VASCULAR: NO RECTAL: DEFERRED GENITAL: DEFERRED NEUROLOGICAL: NORMAL SPEECH, MOTOR FUNCTION INTACT, SENSORY FUNCTION INTACT MUSCULOSKELETAL: NECK NONTENDER, FULL RANGE OF MOTION, BACK NONTENDER, FULL RANGE OF MOTION, EXTREMITIES: NONTENDER, FULL RANGE OF MOTION SKIN: COLOR PINK, DRY, NO TURGOR, NO RASH, NO LACERATIONS, NO ABRASIONS, NO CONTUSIONS. LYMPHATIC: DEFERRED Results (Laboratory/Radiology) Laboratory/Radiology Laboratory Tests Test 02/11/25 16:07 02/11/25 16:11 Urine Color ORANGE (YELLOW) Urine Appearance TURBID (CLEAR) Urine pH 6.0 (5.0-8.0) Urine Specific Lamy 1.030 (1.001-1.031) Urine Protein 100 mg/dL (NEGATIVE) H Urine Glucose (UA) 30 mg/dL (NEGATIVE) H Urine Ketones NEGATIVE mg/dL (NEGATIVE) Urine Occult Blood MODERATE (NEGATIVE) H Urine Nitrate NEGATIVE (NEGATIVE) Urine Bilirubin NEGATIVE mg/dL (NEGATIVE) Urine Urobilinogen 0.2 mg/dL (0.2-1.0) Urine Leukocyte Esterase NEGATIVE Cristal/uL Urine RBC 11-25 /HPF (0-1) H Urine WBC None /HPF (0-1) Urine Squamous Epithelial Cells MANY /HPF (0-2) Urine Bacteria None /HPF (None Seen) Urine Opiates Screen NEGATIVE (NEGATIVE) Urine Barbiturates Screen NEGATIVE (NEGATIVE) Urine Phencyclidine Screen NEGATIVE (NEGATIVE) Urine Amphetamines Screen NEGATIVE (NEGATIVE) Urine Benzodiazepines Screen NEGATIVE (NEGATIVE) Urine Cocaine Screen NEGATIVE (NEGATIVE) Urine Marijuana (THC) Screen POSITIVE (NEGATIVE) H White Blood Count 22.4 K/uL (4.8-10.8) H Red Blood Count 5.19 MIL/uL (4.00-5.50) Hemoglobin 15.9 g/dL (12.0-16.0) Hematocrit 47.1 % (36-48) Mean Corpuscular Volume 90.8 fL (79-99) Mean Corpuscular Hemoglobin 30.6 pg (27.0-33.0) Mean Corpuscular Hemoglobin Concent 33.8 g/dL (32.0-36.0) Red Cell Distribution Width 14.2 % (11.0-15.5) Platelet Count 304 K/uL (130-400) Mean Platelet Volume 10.6 fL (7.5-10.5) H Immature Granulocyte % (Auto) 0.6 % (0-1) Neutrophils (%) (Auto) 89.7 % (40.0-77.0) H Lymphocytes (%) (Auto) 6.2 % (21.0-51.0) L Monocytes (%) (Auto) 3.1 % (3.0-13.0) Eosinophils (%) (Auto) 0.0 % (0.0-8.0) Basophils (%) (Auto) 0.4 % (0.0-5.0) Neutrophils # (Auto) 20.1 K/uL (1.8-7.7) H Lymphocytes # (Auto) 1.4 K/uL (1.0-4.8) Monocytes # (Auto) 0.7 K/uL (0.1-1.0) Eosinophils # (Auto) 0.00 K/uL (0.00-0.70) Basophils # (Auto) 0.08 K/uL (0.00-0.20) Absolute Immature Granulocyte (auto 0.13 K/uL (0-1) Nucleated Red Blood Cells 0.0 % (0.0-0.19) White Cell Morphology Comment See comments Sodium Level 138 mmol/L (136-145) Potassium Level 4.1 mmol/L (3.5-5.1) Chloride Level 102 mmol/L (101-111) Carbon Dioxide Level 23 mmol/L (21-32) Blood Urea Nitrogen 13 mg/dL (7-18) Creatinine 0.7 mg/dL (0.5-1.0) Glomerular Filtration Rate Calc 116 mL/min (>90) Random Glucose 144 mg/dL (70-105) H Total Calcium 9.3 mg/dL (8.5-10.1) Total Bilirubin 0.6 mg/dL (0.2-1.0) Aspartate Amino Transf (AST/SGOT) 20 U/L (10-37) Alanine Aminotransferase (ALT/SGPT) 12 U/L (12-78) Alkaline Phosphatase 99 U/L (50-136) Total Protein 8.9 g/dL (6.0-8.3) H Albumin 4.6 g/dL (3.5-5.0) Lipase 24 U/L (16-77) Human Chorionic Gonadotropin, Quant 0 mIU/mL (0-5) Labs Reviewed?: Yes ED Course ED Course Orders Procedure Category Date Status Time Cbc With Differential LAB 02/11/25 Complete 15:55 Comprehensive LAB 02/11/25 Complete Metabolic Panel 15:55 Urinalysis Profile LAB 02/11/25 Complete 15:55 0.9%Nacl 1000ml (Ns PHA 02/11/25 Complete 1000ml) 16:00 Ondansetron 4mg Inj PHA 02/11/25 Complete (Zofran 4mg Inj) 16:00 Lipase LAB 02/11/25 Complete 15:55 Hcg,Quantitative LAB 02/11/25 Complete 15:55 Famotidine 20mg Vial PHA 02/11/25 Complete (Pepcid 20mg Vial) 16:00 Drug Screen Urine LAB 02/11/25 Complete 15:55 0.9%Nacl 1000ml (Ns PHA 02/11/25 In Process 1000ml) 17:00 Metoclopramide 10 PHA 02/11/25 In Process Mg/2 Ml Vial (Reglan 1 17:00 Methylprednisolone PHA 02/11/25 In Process Succ 125mg (Solu-Medr 17:30 Current Medications Medications (Trade) Dose Ordered Sig/Ronni Route PRN Reason Start Time Stop Time Status Last Admin Dose Admin Famotidine (Pepcid 20mg Vial) 20 mg ONCE ONCE IV 02/11/25 16:00 02/11/25 16:01 DC 02/11/25 16:10 Methylprednisolone Sodium Succinate (Solu-medROL 125MG) 125 mg ONCE IVP 02/11/25 17:30 02/11/25 21:30 Metoclopramide HCl (regLAN 10MG IV) 10 mg ONCE IVP 02/11/25 17:00 02/11/25 21:00 02/11/25 17:11 Ondansetron HCl (zoFRAN 4MG INJ) 4 mg ONCE ONCE IVP 02/11/25 16:00 02/11/25 16:01 DC 02/11/25 16:10 Sodium Chloride 1,000 ml @ 0 mls/hr ONCE IV 02/11/25 17:00 02/11/25 21:00 02/11/25 17:11 Sodium Chloride 1,000 ml @ 0 mls/hr ONCE ONCE IV 02/11/25 16:00 02/11/25 16:01 DC 02/11/25 16:10 Vital Signs Date Time Temp Pulse Resp B/P (MAP) Pulse Ox O2 Delivery O2 Flow Rate FiO2 02/11/25 17:35 98.6 98 20 127/48 100 Room Air* 0 21 02/11/25 15:51 98.6 98 20 148/97 99 Room Air 02/11/25 15:45 99.0 98 20 148/97 99 Room Air* 0 21 1655/SPOKE TO PATIENT AT BEDSIDE AT LENGTH REGARDING HER ABUSE OF CANNABIS AND HER SYMPTOMS OF HYPEREMESIS. SHE STATES I HE HAD BEEN SMOKING FOR YEARS AND I KNOW I NEED TO STOP. I STRONGLY ADVISED HER THAT HER CONTINUED SMOKING WOULD ONLY LEAD TO MORE BOUTS OF HYPEREMESIS. I ALSO STRONGLY ADVISED HER TO STOP USING MARIJUANA AND TO FOLLOW UP WITH HER PRIMARY CARE DOCTOR FOR MANAGEMENT. 1740/PATIENT NO LONGER HAVING ANY GASTRIC TENDERNESS NO NAUSEA VOMITING AT THIS TIME. STATES SHE FEELS A LOT BETTER. SHE ALSO STATES SCORE I NEED TO GIVE THIS MARIJUANA UP I HAVE TWO CHILDREN AND THEY GET SCARED WHEN THEY SEE ME VOMITING LIKE THIS. I STRONGLY ADVISED HER TO FOLLOW UP WITH HER PRIMARY CARE DOCTOR NEXT WEEK. ALSO HIGHLY SUSPECT THAT [id number] WBCS IS REACTIVE AND NOT DUE TO INFECTION. Medical Decision Making MDM MDM: DIFFERENTIAL DIAGNOSIS: CANNABIS ABUSE/POLY DRUG ABUSE/ELECTROLYTE IMBALANCE/DEHYDRATION/ RATIONALE: TESTS CONSIDERED AND ORDERED SECONDARY TO SHARED DECISION MAKING INCLUDE: LABS PREVIOUS OUTSIDE RECORDS REVIEWED: OLD ER VISITS. RISK OF COMPLICATION AND/OR MORBIDITY OR MORTALITY OF PATIENT MANAGEMENT: NONE MEDICATIONS-PER MEDICATION RECONCILIATION NEED FOR HOSPITALIZATION: PATIENT DOES NOT MEET CRITERIA FOR HOSPITALIZATION. NO NEED FOR EMERGENCY MAJOR/MINOR SURGERY: NO THERE ARE NO SOCIAL CONCERNS WITH THIS PATIENT. PATIENT IS A DAILY MARIJUANA SMOKER PRESCRIPTION DRUG MANAGEMENT ZOFRAN/OMEPRAZOLE PRESCRIPTIONS WILL INCLUDE SYMPTOMATIC CARE PATIENT'S PRIOR EXTERNAL MEDICAL RECORDS FROM OTHER ER VISITS WERE REVIEWED BY ME INDICATED. PRIOR TESTING AND RESULTS FROM PREVIOUS VISITS WERE REVIEWED. PRIOR TESTS WERE TAKEN INTO ACCOUNT WITH MEDICAL DECISION MAKING AND RESOURCE UTILIZATION, INDEPENDENT HISTORIAN/HISTORIANS WERE USED TO OBTAIN COMPLETE MEDICAL HISTORY. I INDEPENDENTLY INTERPRETED THE TEST THAT WERE PERFORMED, RESULTS WERE REVIEWED BY ME AND CONSIDERED FINDINGS ON RADIOLOGY IF ORDERED. MEDICAL MANAGEMENT AND EXAMINATION INTERPRETATION DISCUSSIONS WERE HAD BY ME WITH OTHER QUALIFIED HEALTHCARE PROFESSIONALS INDICATED FOR THE PATIENT'S CARE. DX & DISP Disposition: Discharge Departure Impression: Primary Impression: Cannabis hyperemesis syndrome Additional Impression: Hyperglycemia Condition: Stable Scripts Omeprazole (Omeprazole) 40 Mg Capsule.dr 1 CAP PO DAILY for 30 Days, #30 CAP 0 Refills Prov: JUNAID DUMONT 02/11/25 Ondansetron (Ondansetron Odt) 4 Mg Tab.rapdis 4 MG PO Q6HPRN PRN for nausea, #16 TAB 0 Refills Prov: JUNAID DUMONT 02/11/25 Additional Instructions: FOLLOW-UP WITH PRIMARY CARE PROVIDER IN 1 TO 2 DAYS. TAKE MEDICATIONS DIRECTED HERE IN THE EMERGENCY ROOM. OKAY TO CONTINUE HOME MEDICATIONS UNLESS OTHERWISE DISCUSSED DURING YOUR VISIT IN THE EMERGENCY ROOM TODAY. RETURN TO YOUR NEAREST EMERGENCY ROOM IF SYMPTOMS WORSEN OR IF THERE IS NO IMPROVEMENT. CALL 911 IF YOU NEED IMMEDIATE ASSISTANCE. TAKE TYLENOL OR MOTRIN [id number] NEEDED AND IF NO CONTRAINDICATIONS ARE PRESENT. INCREASE ORAL HYDRATION. A WOUND CULTURE OR URINE CULTURE WAS ORDERED HERE IN THE EMERGENCY ROOM DEPARTMENT PLEASE FOLLOW-UP WITH PRIMARY CARE PROVIDER AND ADVISE THEM TO GET REPEAT PORTS FROM OUR FACILITY. IF YOU HAD ANY ARACELI WRAP/SPLINTS THAT WERE APPLIED HERE, PLEASE DO NOT REMOVE THEM UNTIL YOU SEE YOUR PRIMARY CARE OR SPECIALTY. STOP USING MARIJUANA. SUGGEST CLEAR LIQUID DIET FOR THE NEXT 12 HOURS AND THEN ADVANCE DIET SLOWLY TO REGULAR. TAKE OMEPRAZOLE DAILY FOR THE NEXT TWO WEEKS. SEE YOUR PRIMARY CARE DOCTOR FOR FOLLOW UP AND MANAGE Referrals: TUAN MICHELE MD (PCP) Time of Disposition: 17:43 I have reviewed the case, and I agree with, Diagnosis and Plan JUNAID DUMONT Feb 11, 2025 15:59
[2025-02-11] MEDS: FAMOTIDINE 20MG VIAL IV ONE (16:10)
[2025-02-11] MEDS: 0.9%NACL 1000ML 1,000 ML IV ONE (16:10)
[2025-02-11 16:26] LABS: APPEARANCE,URINE TURBID (CLEAR); GLUCOSE, URINE (UA) 30 mg/dL (NEGATIVE); LEUKOCYTE ESTERASE ,URINE NEGATIVE Leu/uL (NEGATIVE); NITRATE,URINE NEGATIVE (NEGATIVE); OCCULT BLOOD,URINE MODERATE (NEGATIVE)
[2025-02-11 16:35] LABS: ADD UA MICROSCOPIC YES
[2025-02-11 16:37] LABS: AMPHET/METH SCREEN,URINE NEGATIVE (NEGATIVE); BARBITURATE SCREEN, URINE NEGATIVE (NEGATIVE); CANNABINOID SCREEN,URINE POSITIVE (NEGATIVE); COCAINE SCREEN,URINE NEGATIVE (NEGATIVE)
[2025-02-11 16:38] LABS: IMMATURE GRANULOCYTE ABSOLUTE 0.13 K/uL (0-1); NUCLEATED RED BLOOD CELLS 0.0 % (0.0-0.19); PLATELET COUNT (AUTO) 304 K/uL (130-400); RED BLOOD CELL COUNT(AUTO) 5.19 MIL/uL (4.00-5.50); RED CELL DISTRIBUTION WIDTH 14.2 % (11.0-15.5); WHITE BLOOD COUNT (AUTO) 22.4 K/uL (4.8-10.8)
[2025-02-11 16:39] LABS: SQUAMOUS EPITHELIAL CELL,UR MANY /HPF (0-2)
[2025-02-11 16:48] LABS: CREATININE 0.7 mg/dL (0.5-1.0); GLOMERULAR FILTR. RATE CALC 116.0 mL/min (>90); GLUCOSE,RANDOM 144.0 mg/dL (70-105); SODIUM SERUM 138.0 mmol/L (136-145); UREA NITROGEN, BLOOD 13.0 mg/dL (7-18)
[2025-02-11 16:57] LABS: ASPARTATE AMINOTRANSFERASE 20.0 U/L (10-37); HCG,QUANTITATIVE 0.0 mIU/mL (0-5); TOTAL PROTEIN, SERUM 8.9 g/dL (6.0-8.3)
[2025-02-11] MEDS: 0.9%NACL 1000ML 1,000 ML IV SCH (17:11)
--- NOTE | 2025-02-11 17:26 | NUR ---
800 ML OF EMESIS
[2025-02-11 17:35] VITALS: RESP 20; O2SAT 100
[2025-02-11] MEDS ORDERED: OMEP40CA21 PO (17:44)
[2025-02-11] MEDS ORDERED: ONDA-243 PO (17:44)
[2025-02-11 18:20] VITALS: BP 134/72; PULSE 96; TEMP 98.6
== END 2025-02-11 18:21 | disposition home or self-care (01) ==
LOC: EDH 15:44
DX: R11.16 Cannabis hyperemesis syndrome (principal); F12.90 Cannabis use, unspecified, uncomplicated; R73.9 Hyperglycemia, unspecified; F41.9 Anxiety disorder, unspecified; Z98.890 Other specified postprocedural states; Z79.899 Other long term (current) drug therapy
CPT/HCPCS: 99284; 96374; 96375; 96361; 80053; 80305; 84702; 83690; 85025; 36415; 81001; J2919; J1308; J7030 ×2; J2405; J2765